=== PATIENT | male | born 1945 | race Caucasian/White ===

== ENCOUNTER 2020-03-19 21:18 | Emergency (ER) | payer MEDICARE, OTHER ==
[2020-03-19] MEDS ORDERED: Sodium Bicarbonate 8.4% 50 MEQ/50 ML Syringe IVPUSH ONE (21:28)
[2020-03-19] MEDS ORDERED: 50% Dextrose in Water 50 ML Syringe IVPUSH ONE (21:28)
[2020-03-19] MEDS ORDERED: Insulin Lispro 100 Unit/ML 3 ML KwikPen SUBCUT STA (21:28)
[2020-03-19] MEDS ORDERED: Sodium Chloride 0.9% 10 ML Syringe FLUSH PRN (21:28)
[2020-03-19] MEDS ORDERED: Albuterol 0.083% 2.5 MG/3 ML Neb Soln NEB ONE (21:28)
[2020-03-19] MEDS ORDERED: Sodium Chloride 0.9% 1,000 ML IV SCH (21:45)
[2020-03-19] MEDS ORDERED: Insulin Lispro 100 Unit/ML 3 ML KwikPen SUBCUT ONE (22:02)
--- NOTE | 2020-03-19 23:17 | EDM.PDOC ---
ED HPI GENERAL MEDICAL PROBLEM - General Chief Complaint: General Stated Complaint: high potassium Time Seen by Provider: 03/19/20 21:25 Source of Information: Reports: Patient History Limitations: Reports: No Limitations - History of Present Illness INITIAL COMMENTS - FREE TEXT/NARRATIVE: Patient presented to the ED because of an elevated potassium at 6. He is otherwise asymptomatic. - Related Data Allergies Allergy/AdvReac Type Severity Reaction Status Date / Time No Known Allergies Allergy Verified 03/19/20 22:33 Home Meds: Home Meds Lisinopril 5 mg PO DAILY 06/01/18 [History] atorvaSTATin [Lipitor] 10 mg PO BEDTIME 06/01/18 [History] Past Medical History HEENT History: Reports: Cataract Cardiovascular History: Reports: Hypertension Respiratory History: Reports: None, Other (See Below) Other Respiratory History: former smoker quit 20 years ago. 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 Musculoskeletal History: Reports: None Neurological History: Reports: CVA Psychiatric History: Reports: None Endocrine/Metabolic History: Reports: Obesity/BMI 30+ Hematologic History: Reports: None Immunologic History: Reports: None Oncologic (Cancer) History: Reports: None Dermatologic History: Reports: None - Past Surgical History Head Surgeries/Procedures: Reports: None HEENT Surgical History: Reports: Cataract Surgery GI Surgical History: Reports: Colonoscopy Social & Family History - Family History Family Medical History: Noncontributory - Tobacco Use Smoking Status *Q: Former Smoker Used Tobacco, but Quit: Yes Month/Year Tobacco Last Used: 20 years ago Second Hand Smoke Exposure: No - Caffeine Use Caffeine Use: Reports: Soda Other Caffeine Use: seldom. - Recreational Drug Use Recreational Drug Use: No ED ROS GENERAL - Review of Systems Review Of Systems: See Below Constitutional: Reports: No Symptoms HEENT: Reports: No Symptoms Respiratory: Reports: No Symptoms Cardiovascular: Reports: Orthopnea GI/Abdominal: Reports: No Symptoms : Reports: No Symptoms Musculoskeletal: Reports: No Symptoms Skin: Reports: No Symptoms Neurological: Reports: No Symptoms Psychiatric: Reports: No Symptoms Hematologic/Lymphatic: Reports: No Symptoms ED EXAM, GENERAL - Physical Exam Exam: See Below Exam Limited By: No Limitations General Appearance: Alert, No Apparent Distress Eye Exam: Bilateral Eye: PERRL Ears: Normal External Exam, Normal Canal, Hearing Grossly Normal Nose: Normal Inspection, Normal Mucosa, No Blood Throat/Mouth: Normal Inspection, Normal Lips, Normal Teeth, Normal Gums Head: Atraumatic, Normocephalic Neck: Normal Inspection, Supple, Non-Tender, Full Range of Motion Respiratory/Chest: No Respiratory Distress, Lungs Clear, Normal Breath Sounds, No Accessory Muscle Use Cardiovascular: Normal Peripheral Pulses, Regular Rate, Rhythm, No Edema, No Gallop, No JVD, No Murmur, No Rub GI/Abdominal: Normal Bowel Sounds, Soft, Non-Tender (Male) Exam: No Hernia, Normal Inspection, Normal Prostate Back Exam: Normal Inspection, Full Range of Motion Extremities: Normal Inspection, Normal Range of Motion Neurological: Alert, Oriented, CN II-XII Intact Course - Vital Signs Text/Narrative:: Serum K=6 Repeat serum K=4.6 NS 1 L bolus Sodium Bicarb 8.4% 1 amp IV D50 50 ml IV Humalog 20 U SC x1 Albuterol neb x1 Last Recorded V/S: Last Vital Signs Temp 36.5 C 03/19/20 21:20 Pulse 71 03/19/20 21:20 Resp 16 03/19/20 21:20 BP 143/65 H 03/19/20 21:20 Pulse Ox 98 03/19/20 21:20 - Orders/Labs/Meds Orders: Active Orders 24 hr Category Date Time Status RT Aerosol Therapy [RC] ASDIRECTED Care 03/19/20 21:33 Active POTASSIUM,K [CHEM] Stat Lab 03/19/20 23:00 Ordered Sodium Chloride 0.9% [Normal Saline] 1,000 ml Med 03/19/20 21:45 Active IV ASDIRECTED Sodium Chloride 0.9% [Saline Flush] Med 03/19/20 21:28 Active 10 ml FLUSH ASDIRECTED PRN Saline Lock Insert [OM.PC] Routine Oth 03/19/20 21:28 Ordered Medication Orders Sodium Chloride (Normal Saline) 1,000 mls @ 999 mls/hr IV ASDIRECTED GREY Last Admin: 03/19/20 22:11 Dose: 999 mls/hr Documented by: HAI Sodium Chloride (Saline Flush) 10 ml FLUSH ASDIRECTED PRN PRN Reason: Keep Vein Open Meds: Medications Generic Name Dose Route Start Last Admin Trade Name Freq PRN Reason Stop Dose Admin Sodium Chloride 1,000 mls @ 999 mls/hr 08/05/20 21:45 03/19/20 22:11 Normal Saline IV 999 mls/hr ASDIRECTED GREY Administration Sodium Chloride 10 ml 03/19/20 21:28 Saline Flush FLUSH ASDIRECTED PRN Keep Vein Open Discontinued Medications Generic Name Dose Route Start Last Admin Trade Name Carlozq PRN Reason Stop Dose Admin Albuterol 2.5 mg 03/19/20 21:28 03/19/20 21:52 Proventil Neb Soln NEB 03/19/20 21:29 2.5 mg ONETIME ONE Administration Dextrose/Water 50 ml 03/19/20 21:28 03/19/20 22:03 Dextrose 50% In Water IVPUSH 03/19/20 21:29 50 ml ONETIME ONE Administration Insulin Human Lispro 20 unit 03/19/20 21:28 03/19/20 22:04 Humalog SUBCUT 03/19/20 21:29 20 units NOW STA Administration Sodium Bicarbonate 50 meq 03/19/20 21:28 03/19/20 22:11 Sodium Bicarbonate 8.4% IVPUSH 03/19/20 21:29 50 meq ONETIME ONE Administration Departure - Departure Time of Disposition: 23:30 Disposition: Home, Self-Care 01 Condition: Good Clinical Impression: Hyperkalemia - Discharge Information Instructions: Hyperkalemia, [id number] Referrals: Yasmany Diaz MD [Primary Care Provider] - Forms: ED Department Discharge Additional Instructions: Please read discharge instructions on hyperkalemia-elevated potassium Follow up as needed Sepsis Event Note (ED) - Evaluation Sepsis Screening Result: No Definite Risk - Focused Exam Vital Signs: Vital Signs Temp Pulse Resp BP Pulse Ox 03/19/20 21:20 36.5 C 71 16 143/65 H 98 - My Orders Last 24 Hours: My Active Orders 03/19/20 21:28 Sodium Chloride 0.9% [Saline Flush] 10 ml FLUSH ASDIRECTED PRN Saline Lock Insert [OM.PC] Routine 03/19/20 21:33 RT Aerosol Therapy [RC] ASDIRECTED 03/19/20 21:45 Sodium Chloride 0.9% [Normal Saline] 1,000 ml IV ASDIRECTED 03/19/20 23:00 POTASSIUM,K [CHEM] Stat - Assessment/Plan Last 24 Hours: My Active Orders 03/19/20 21:28 Sodium Chloride 0.9% [Saline Flush] 10 ml FLUSH ASDIRECTED PRN Saline Lock Insert [OM.PC] Routine 03/19/20 21:33 RT Aerosol Therapy [RC] ASDIRECTED 03/19/20 21:45 Sodium Chloride 0.9% [Normal Saline] 1,000 ml IV ASDIRECTED 03/19/20 23:00 POTASSIUM,K [CHEM] Stat
== END 2020-03-19 23:50 | disposition home or self-care (01) ==
LOC: FB.ED 21:18
DX: E87.5 Hyperkalemia (principal); I10 Essential (primary) hypertension; E66.9 Obesity, unspecified; Z79.899 Other long term (current) drug therapy; Z87.891 Personal history of nicotine dependence; Z86.73 Personal history of transient ischemic attack (TIA), and cerebral infarction without residual deficits; Z98.890 Other specified postprocedural states; Z68.33 Body mass index [BMI] 33.0-33.9, adult
CPT/HCPCS: 36415; 82962; 84132; 94640; 96374; 96375; 99284; 99285; J1815; J7030